=== PATIENT | female | born 2000 | race Hispanic/Latino ===

== ENCOUNTER 2021-11-06 08:45 | Emergency (ER) | payer BC ==
[2021-11-06 12:57] LABS: BHCG - Serum Negative (NEGATIVE); Pregs Control Background? CLEAR/WHITE (CLR/WHITE); Pregs Control Bar Appear? YES (CONTROL BAR)
[2021-11-06] MEDS ORDERED: Dexamethasone 10 MG/ML VIAL ONE (14:30)
== END 2021-11-06 15:15 | disposition home or self-care (01) ==
LOC: CSHERS 08:45
DX: J36 Peritonsillar abscess (principal); F17.200 Nicotine dependence, unspecified, uncomplicated
CPT/HCPCS: 36415; 70491; 84703; 87081; 87430; 96374; J1100